=== PATIENT | male | born 1965 | race Two or more races ===

== ENCOUNTER 2017-12-25 11:59 | Inpatient (IN) | payer OTHER ==
[2017-12-25 15:28] VITALS: BMI 26.1
--- NOTE | 2017-12-25 17:55 | HP ---
CIWA Score - CIWA Score Nausea/Vomitin Muscle Tremors: 2 Anxiety: 3 Agitation: 3 Paroxysmal Sweats: 3 Orientation: 1-Uncertain about Date Tacttile Disturbances: 0-None Auditory Disturbances: 2-Mild Harshness/Frighten Visual Disturbances: 2-Mild Sensitivity Headache: 3-Moderate CIWA-Ar Total Score: 22 Admission ROS BHS - HPI Chief Complaint: I am here for detox from alcohol, I don't feel well " Allergies/Adverse Reactions: Allergies Allergy/AdvReac Type Severity Reaction Status Date / Time No Known Allergies Allergy Verified 12/25/17 16:54 History of Present Illness: 52 yo male with hx of alcohol, cocaine, nicotine dependence is here for detox. Reports hx of insomnia , denies any other medical or psychiatric history. Currently in a [facility] at [facility] [place] Fax: , on 80 mg of Methadone, last medicated 12/25/17. Reports smoking cigarettes since ages of 15 yo, currently smokes 5 cigarettes per day. Denies suicidal / homicidal ideation or suicide attempts. Exam Limitations: No Limitations - Ebola screening Have you traveled outside of the country in the last 21 days: No (N) Have you had contact with anyone from an Ebola affected area: No Have you been sick,other than usual withdrawal symptoms: No Do you have a fever: No - Review of Systems Constitutional: Chills, Loss of Appetite, Changes in sleep EENT: reports: No Symptoms Reported Respiratory: reports: No Symptoms reported Cardiac: reports: No Symptoms Reported GI: reports: No Symptoms Reported : reports: No Symptoms Reported Musculoskeletal: reports: No Symptoms Reported Integumentary: reports: Other (hyperpigmentation on bilateral both lower extremites) Neuro: reports: Headache Endocrine: reports: No Symptoms Reported Hematology: reports: No Symptoms Reported Psychiatric: reports: Agitated, Depressed, other (AOxPP) Other Systems: Reviewed and Negative Patient History - Patient Medical History Hx Anemia: No Hx Asthma: No Hx Chronic Obstructive Pulmonary Disease (COPD): No Hx Cancer: No Hx Cardiac Disorders: No Hx Congestive Heart Failure: No Hx Hypertension: No Hx Hypercholesterolemia: No Hx Pacemaker: No HX Cerebrovascular Accident: No Hx Seizures: No Hx Dementia: No Hx Diabetes: No Hx Gastrointestinal Disorders: No Hx Liver Disease: No Hx Genitourinary Disorders: No Hx Sexually Transmitted Disorders: No Hx Renal Disease (ESRD): No Hx Thyroid Disease: No Hx Human Immunodeficiency Virus (HIV): No (neagtive last tested Sep 2017) Hx Hepatitis C: No Hx Depression: No Hx Suicide Attempt: No Hx Bipolar Disorder: No Hx Schizophrenia: No - Patient Surgical History Past Surgical History: No Hx Neurologic Surgery: No Hx Cataract Extraction: No Hx Cardiac Surgery: No Hx Lung Surgery: No Hx Breast Surgery: No Hx Breast Biopsy: No Hx Abdominal Surgery: Yes (Abdominal Hernia ) Hx Appendectomy: No Hx Cholecystectomy: No Hx Genitourinary Surgery: No Hx Section: No Hx Orthopedic Surgery: No Hx Hysterectomy: No Anesthesia Reaction: No - PPD History Previous Implant?: No PPD to be Administered?: Yes - Reproductive History Patient is a Female of Child Bearing Age (11 -55 yrs old): No - Smoking Cessation Smoking history: Current every day smoker Have you smoked in the past 12 months: Yes Aproximately how many cigarettes per day: 10 Hx Chewing Tobacco Use: No Initiated information on smoking cessation: Yes 'Breaking Loose' booklet given: 12/25/17 - Substance & Tx. History Hx Alcohol Use: Yes Hx Substance Use: Yes Substance Use Type: Alcohol, Cocaine, Heroin Hx Substance Use Treatment: Yes ([facility] 07/2017) - Substances Abused Alcohol Route: Oral Frequency: Daily Amount used: 24 OZ ALCOHOL Age of first use: 18 Date of Last Use: 12/25/17 Cocaine Route: Smoking Frequency: Daily Amount used: 5GRAM Age of first use: 18 Date of Last Use: 12/18/17 Family Disease History - Family Disease History Family Disease History: Other: Mother (alive and well ) Admission Physical Exam [facility] - Vital Signs Vital Signs: Vital Signs - 24 hr 12/25/17 15:16 Temperature 97 F L Pulse Rate 64 Respiratory 20 Rate Blood Pressure 124/88 - Physical General Appearance: Yes: Disheveled, Irritable, Anxious HEENTM: Yes: EOMI, Hearing grossly Normal, Normal ENT Inspection, Normocephalic , Normal Voice, LOBO, Pharynx Normal, Tm's normal, Other (dry mucous membranes) Respiratory: Yes: Chest Non-Tender, Lungs Clear, Normal Breath Sounds, No Respiratory Distress, No Accessory Muscle Use Neck: Yes: No masses,lesions,Nodules, Trachea in good position Breast: Yes: Breast Exam Deferred Cardiology: Yes: Regular Rhythm, Regular Rate, S1, S2 Abdominal: Yes: Normal Bowel Sounds, Non Tender, Flat, Soft Genitourinary: Yes: Within Normal Limits Back: Yes: Normal Inspection Musculoskeletal: Yes: full range of Motion, Gait Steady Extremities: Yes: Normal Range of Motion, Non-Tender, Swelling (bilateral lower extremities non-pitting edema +2 with hyperpigmentation) Neurological: Yes: ham doctor II-XII NML intact, Fully Oriented, Alert, Motor Strength 5/5, Depressed Affect Integumentary: Yes: Dry, Warm, Pitting Edema, Other (hyperpigmentation on bilateral lower extremities) - Diagnostic (1) Venous insufficiency (chronic) (peripheral) Current Visit: Yes Status: Chronic (2) Methadone maintenance therapy patient Current Visit: Yes Status: Chronic Comment: Currently on 80 mg of Methadone , pending verification (3) Cocaine dependence Current Visit: Yes Status: Chronic (4) Alcohol dependence with uncomplicated withdrawal Current Visit: Yes Status: Acute (5) Dehydration Current Visit: Yes Status: Acute Cleared for Admission [facility] - Detox or Rehab [facility] Level of Care: Medically Managed Detox Regimen/Protocol: Librium [facility] Breath Alcohol Content Breath Alcohol Content: 0.199 Urine Drug Screen - Results Drug Screen Negative: No Urine Drug Screen Results: KAROLINA-Cocaine, MTD-Methadone
[2017-12-25] MEDS ORDERED: P-EPHED 60MG/TRIPROLIDI 2.5MG TABLET PO PRN (18:14)
[2017-12-25] MEDS ORDERED: hydrOXYzine PAMOATE 50 MG CAPSULE (FP) PO PRN (18:14)
[2017-12-25] MEDS ORDERED: guaiFENesin/D-METHORPHAN HB 10 ML UNIT-DOSE CUPS PO PRN (18:14)
[2017-12-25] MEDS ORDERED: MAG HYDROX/AL HYDROX/SIMETH 30 ML UNIT-DOSE CUP PO PRN (18:14)
[2017-12-25] MEDS ORDERED: MAGNESIUM HYDROX 2400MG/30ML ORAL SUSPENSION 30 ML CUP PO PRN (18:14)
[2017-12-25] MEDS ORDERED: ACETAMINOPHEN 325 MG TABLET (FP) PO PRN (18:14)
[2017-12-25] MEDS ORDERED: MENTHOL/PHENOL 1 EACH UD MM PRN (18:14)
[2017-12-25] MEDS ORDERED: NICOTINE POLACRILEX 2 MG GUM BC PRN (18:14)
[2017-12-25] MEDS ORDERED: chlordiazePOXIDE HCL 25 MG CAPSULE PO PRN (18:14)
[2017-12-25] MEDS ORDERED: LOPERAMIDE HCL 2 MG CAPSULE PO PRN (18:14)
[2017-12-25] MEDS ORDERED: MAGNESIUM CITRATE 300 ML BOTTLE PO PRN (18:14)
[2017-12-25] MEDS ORDERED: IBUPROFEN 400 MG TABLET (FP) PO PRN (18:14)
[2017-12-25] MEDS ORDERED: chlordiazePOXIDE HCL 25 MG CAPSULE PO ONE (19:00)
[2017-12-25] MEDS: chlordiazePOXIDE HCL 25 MG CAPSULE PO SCH (22:10)
[2017-12-25] MEDS: THIAMINE HCL 100 MG TABLET (FP) PO SCH (22:10)
[2017-12-25 23:32] LABS: URINE APPEARANCE CLEAR; URINE BILIRUBIN NEGATIVE (NEGATIVE); URINE BLOOD NEGATIVE (NEGATIVE); URINE COLOR STRAW; URINE GLUCOSE (UA) NEGATIVE (NEGATIVE); URINE KETONE NEGATIVE (NEGATIVE); URINE LEUK ESTERASE NEGATIVE (NEGATIVE); URINE NITRITE NEGATIVE (NEGATIVE); URINE PROTEIN NEGATIVE (NEGATIVE); URINE UROBILINOGEN NEGATIVE mg/dL (0.2-1.0)
[2017-12-26] MEDS: chlordiazePOXIDE HCL 25 MG CAPSULE PO SCH ×4 (06:09→21:59)
[2017-12-26] MEDS ORDERED: METHADONE HCL 40 MG DISPERSABLE TABLET PO ONE (08:58)
[2017-12-26 10:04] LABS: HEMOGLOBIN 12.6 GM/dL (11.7-16.9); MCH 27.6 pg (25.7-33.7); MCHC 31.5 g/dl (32.0-35.9); MEAN CELL VOLUME 87.8 fl (80-96); MEAN PLT VOLUME 8.3 fl (7.5-11.1); PLATELET COUNT 239 K/MM3 (134-434); RBC 4.56 M/mm3 (4.00-5.60); RDW 15.1 % (11.9-15.9); WHITE BLOOD COUNT 6.3 K/mm3 (4.0-10.0)
[2017-12-26 10:35] LABS: CHLORIDE 107 mmol/L (98-107); POTASSIUM 4.4 mmol/L (3.5-5.1); SODIUM 142 mmol/L (136-145)
[2017-12-26 10:47] LABS: ALBUMIN 3.3 g/dl (3.4-5.0); ALK PHOS 171 U/L (45-117); ANION GAP 6 (8-16); BILIRUBIN,TOTAL 0.7 mg/dL (0.2-1.0); BLOOD UREA NITROGEN 11 mg/dL (7-18); CALCIUM 8.5 mg/dL (8.5-10.1); CO2 29 mmol/L (21-32); CREATININE 0.9 mg/dL (0.7-1.3); GLUCOSE,RANDOM 75 mg/dL (74-106); SGOT/AST 43 U/L (15-37); SGPT/ALT 50 U/L (12-78); TOT PROT 6.4 g/dl (6.4-8.2)
[2017-12-26] MEDS: PRENATAL VITAMINS W/ FOLIC ACID TABLET (FP) PO SCH (10:47)
[2017-12-26] MEDS: NICOTINE 7 MG/24 HOURS TOPICAL PATCH TD SCH (10:49)
--- NOTE | 2017-12-26 11:01 | EKG ---
Test Reason : Blood Pressure : / mmHG Vent. Rate : 061 BPM Atrial Rate : 061 BPM P-R Int : 170 ms QRS Dur : 092 ms QT Int : 388 ms P-R-T Axes : 043 -02 077 degrees QTc Int : 390 ms NORMAL SINUS RHYTHM NONSPECIFIC T WAVE ABNORMALITY ABNORMAL ECG NO PREVIOUS ECGS AVAILABLE Confirmed by HOWIE SANTANA MD ([id number]) on 12/26/2017 11:01:18 AM Referred By: Confirmed By:HOWIE SANTANA MD
--- NOTE | 2017-12-26 11:31 | PN ---
[facility] CIWA - CIWA Score Nausea/Vomitin-No Nausea/No Vomiting Muscle Tremors: 4-Moderate,w/Arms Extend Anxiety: 4-Mod. Anxious/Guarded Agitation: 4-Moderately Restless Paroxysmal Sweats: 1-Minimal Palms Moist Orientation: 0-Oriented Tacttile Disturbances: 3-Moderate Itch/Numb/Burn Auditory Disturbances: 0-None Visual Disturbances: 0-None Headache: 0-None Present CIWA-Ar Total Score: 16 S Progress Note (SOAP) Subjective: BACK ACHE, STOMACH CRAMPS, NO BM. Objective: 12/26/17 11:30 Vital Signs Temperature 96.7 F L 12/26/17 09:42 Pulse Rate 80 12/26/17 09:42 Respiratory Rate 18 12/26/17 09:42 Blood Pressure 121/80 12/26/17 09:42 O2 Sat by Pulse Oximetry (%) Laboratory Last Values WBC 6.3 K/mm3 (4.0-10.0) 12/26/17 07:30 RBC 4.56 M/mm3 (4.00-5.60) 12/26/17 07:30 Hgb 12.6 GM/dL (11.7-16.9) 12/26/17 07:30 Hct 40.0 % (35.4-49) 12/26/17 07:30 MCV 87.8 fl (80-96) 12/26/17 07:30 MCH 27.6 pg (25.7-33.7) 12/26/17 07:30 MCHC 31.5 g/dl (32.0-35.9) L 12/26/17 07:30 RDW 15.1 % (11.9-15.9) 12/26/17 07:30 Plt Count 239 K/MM3 (134-434) 12/26/17 07:30 MPV 8.3 fl (7.5-11.1) 12/26/17 07:30 Sodium 142 mmol/L (136-145) 12/26/17 07:30 Potassium 4.4 mmol/L (3.5-5.1) 12/26/17 07:30 Chloride 107 mmol/L (98-107) 12/26/17 07:30 Carbon Dioxide 29 mmol/L (21-32) 12/26/17 07:30 Anion Gap 6 (8-16) L 12/26/17 07:30 BUN 11 mg/dL (7-18) 12/26/17 07:30 Creatinine 0.9 mg/dL (0.7-1.3) 12/26/17 07:30 Creat Clearance w eGFR > 60 (>60) 12/26/17 07:30 Random Glucose 75 mg/dL (74-106) 12/26/17 07:30 Calcium 8.5 mg/dL (8.5-10.1) 12/26/17 07:30 Total Bilirubin 0.7 mg/dL (0.2-1.0) 12/26/17 07:30 AST 43 U/L (15-37) H 12/26/17 07:30 ALT 50 U/L (12-78) 12/26/17 07:30 Alkaline Phosphatase 171 U/L (45-117) H 12/26/17 07:30 Total Protein 6.4 g/dl (6.4-8.2) 12/26/17 07:30 Albumin 3.3 g/dl (3.4-5.0) L 12/26/17 07:30 Urine Color Straw 12/25/17 20:21 Urine Appearance Clear 12/25/17 20:21 Urine pH 6.0 (5.0-8.0) 12/25/17 20:21 Ur Specific [place] 1.003 (1.001-1.035) 12/25/17 20:21 Urine Protein Negative (NEGATIVE) 12/25/17 20:21 Urine Glucose (UA) Negative (NEGATIVE) 12/25/17 20:21 Urine Ketones Negative (NEGATIVE) 12/25/17 20:21 Urine Blood Negative (NEGATIVE) 12/25/17 20:21 Urine Nitrite Negative (NEGATIVE) 12/25/17 20:21 Urine Bilirubin Negative (NEGATIVE) 12/25/17 20:21 Urine Urobilinogen Negative mg/dL (0.2-1.0) 12/25/17 20:21 Ur Leukocyte Esterase Negative (NEGATIVE) 12/25/17 20:21 Assessment: 12/26/17 11:30 WITHDRAWAL SX Plan: CONTINUE DETOX MOM PRN, CITRATE OF MG IF NOT EFFECTIVE
--- NOTE | 2017-12-26 15:02 | CONSULT ---
[facility] Psychiatric Consult - Data Date of interview: 12/26/17 Admission source: [facility] Identifying data: Readmission to [facility] for this 52 y/o male seeking detox treatment on for alcohol,cocaine and opioid dependence.Patient is single,a father of two,domiciled,unemployed and supported on Public Assistance. Substance Abuse History: Confirmed by patient in this interview.See details in current [facility] report.Smoking history: Current every day smoker. Have you smoked in the past 12 months: Yes. Aproximately how many cigarettes per day: 10. Hx Chewing Tobacco Use: No. Initiated information on smoking cessation: Yes. ' Breaking Loose' booklet given: 12/25/17. - Substance & Tx. History. Hx Alcohol Use: Yes. Hx Substance Use: Yes. Substance Use Type: Alcohol, Cocaine , Heroin. Hx Substance Use Treatment: Yes ([facility] 07/2017). - Substances Abused. Alcohol. Route: Oral. Frequency: Daily. Amount used: 24 OZ ALCOHOL. Age of first use: 18. Date of Last Use: 12/25/17. Cocaine. Route: Smoking. Frequency: Daily. Amount used: 5GRAM. Age of first use: 18. Date of Last Use : 12/18/17 Medical History: Peripheral venous insufficiency (both lower extremities) and abdominal hernia. Psychiatric History: Patient denies. Physical/Sexual Abuse/Trauma History: Patient denies history of psychiatric hospitalizations.Mr Sequeira is currently on methadone maintenace (80 mg/day) at the [facility] [place] [facility].Patient denies history of suicide attempts. Additional Comment: Urine Drug Screen Results: KAROLINA-Cocaine, MTD-Methadone.Noted. Mental Status Exam - Mental Status Exam Alert and Oriented to: Time, Place, Person Cognitive Function: Good Patient Appearance: Well Groomed Mood: Hopeful, Euthymic Affect: Appropriate, Normal Range Patient Behavior: Fatigued, Appropriate, Cooperative Speech Pattern: Clear Voice Loudness: Normal Thought Process: Intact, Goal Oriented Thought Disorder: Not Present Hallucinations: Denies Suicidal Ideation: Denies Homicidal Ideation: Denies Insight/Judgement: Poor Sleep: Poorly, Difficulty falling asleep Appetite: Good Muscle strength/Tone: Normal Gait/Station: Normal Psychiatric Findings - Problem List ([place] 1, 2,3) (1) Opioid dependence on agonist therapy Current Visit: Yes Status: Acute (2) Alcohol dependence with uncomplicated withdrawal Current Visit: Yes Status: Acute (3) Cocaine dependence Current Visit: Yes Status: Acute (4) Insomnia Current Visit: Yes Status: Acute - Initial Treatment Plan Initial Treatment Plan: Psychoeducation.Sleep hygiene.Detoxification in effect.Choice of hypnotic medications is presented to patient.Declines.Encouraged to attend / participate in groups,community meetings and recreational activities during this hospital course.Patient agrees.Observation.
[2017-12-26] MEDS: THIAMINE HCL 100 MG TABLET (FP) PO SCH (21:59)
[2017-12-27] MEDS: METHADONE HCL 40 MG DISPERSABLE TABLET PO SCH (05:47)
[2017-12-27] MEDS: chlordiazePOXIDE HCL 25 MG CAPSULE PO SCH ×2 (05:47→10:36)
[2017-12-27] MEDS: NICOTINE 7 MG/24 HOURS TOPICAL PATCH TD SCH (10:36)
[2017-12-27] MEDS: PRENATAL VITAMINS W/ FOLIC ACID TABLET (FP) PO SCH (10:36)
[2017-12-27] MEDS: TETRAHYDROZOLINE HCL 1 DROP DROPS OD PRN (10:39)
--- NOTE | 2017-12-27 12:03 | PN ---
[facility] CIWA - CIWA Score Nausea/Vomitin-No Nausea/No Vomiting Muscle Tremors: 4-Moderate,w/Arms Extend Anxiety: 4-Mod. Anxious/Guarded Agitation: 4-Moderately Restless Paroxysmal Sweats: 1-Minimal Palms Moist Orientation: 0-Oriented Tacttile Disturbances: 3-Moderate Itch/Numb/Burn Auditory Disturbances: 0-None Visual Disturbances: 0-None Headache: 0-None Present CIWA-Ar Total Score: 16 S Progress Note (SOAP) Subjective: PT C/O "I'M NOT FEELING WELL'-ANXIETY,SWEATS,ACHES,NAUSEA. HOWEVER PT APPEARED SLIGHTLY DROWSY.OOB AMBULATING WITH STEADY GAIT. Objective: 12/27/17 12:02 Vital Signs Temperature 97.5 F L 12/27/17 09:42 Pulse Rate 59 L 12/27/17 09:42 Respiratory Rate 18 12/27/17 09:42 Blood Pressure 107/66 12/27/17 09:42 O2 Sat by Pulse Oximetry (%) Laboratory Last Values WBC 6.3 K/mm3 (4.0-10.0) 12/26/17 07:30 RBC 4.56 M/mm3 (4.00-5.60) 12/26/17 07:30 Hgb 12.6 GM/dL (11.7-16.9) 12/26/17 07:30 Hct 40.0 % (35.4-49) 12/26/17 07:30 MCV 87.8 fl (80-96) 12/26/17 07:30 MCH 27.6 pg (25.7-33.7) 12/26/17 07:30 MCHC 31.5 g/dl (32.0-35.9) L 12/26/17 07:30 RDW 15.1 % (11.9-15.9) 12/26/17 07:30 Plt Count 239 K/MM3 (134-434) 12/26/17 07:30 MPV 8.3 fl (7.5-11.1) 12/26/17 07:30 Sodium 142 mmol/L (136-145) 12/26/17 07:30 Potassium 4.4 mmol/L (3.5-5.1) 12/26/17 07:30 Chloride 107 mmol/L (98-107) 12/26/17 07:30 Carbon Dioxide 29 mmol/L (21-32) 12/26/17 07:30 Anion Gap 6 (8-16) L 12/26/17 07:30 BUN 11 mg/dL (7-18) 12/26/17 07:30 Creatinine 0.9 mg/dL (0.7-1.3) 12/26/17 07:30 Creat Clearance w eGFR > 60 (>60) 12/26/17 07:30 Random Glucose 75 mg/dL (74-106) 12/26/17 07:30 Calcium 8.5 mg/dL (8.5-10.1) 12/26/17 07:30 Total Bilirubin 0.7 mg/dL (0.2-1.0) 12/26/17 07:30 AST 43 U/L (15-37) H 12/26/17 07:30 ALT 50 U/L (12-78) 12/26/17 07:30 Alkaline Phosphatase 171 U/L (45-117) H 12/26/17 07:30 Total Protein 6.4 g/dl (6.4-8.2) 12/26/17 07:30 Albumin 3.3 g/dl (3.4-5.0) L 12/26/17 07:30 Urine Color Straw 12/25/17 20:21 Urine Appearance Clear 12/25/17 20:21 Urine pH 6.0 (5.0-8.0) 12/25/17 20:21 Ur Specific [place] 1.003 (1.001-1.035) 12/25/17 20:21 Urine Protein Negative (NEGATIVE) 12/25/17 20:21 Urine Glucose (UA) Negative (NEGATIVE) 12/25/17 20:21 Urine Ketones Negative (NEGATIVE) 12/25/17 20:21 Urine Blood Negative (NEGATIVE) 12/25/17 20:21 Urine Nitrite Negative (NEGATIVE) 12/25/17 20:21 Urine Bilirubin Negative (NEGATIVE) 12/25/17 20:21 Urine Urobilinogen Negative mg/dL (0.2-1.0) 12/25/17 20:21 Ur Leukocyte Esterase Negative (NEGATIVE) 12/25/17 20:21 RPR Titer Nonreactive (NONREACTIVE) 12/26/17 07:30 Hepatitis C Antibody <0.1 s/co ratio (0.0-0.9) 12/25/17 07:30 Assessment: 12/27/17 12:02 WITHDRAWAL SX Plan: CONTINUED DETOX
[2017-12-27] MEDS: chlordiazePOXIDE 5 MG CAPSULE PO SCH ×2 (17:34→22:07)
[2017-12-27] MEDS: THIAMINE HCL 100 MG TABLET (FP) PO SCH (22:07)
[2017-12-27] MEDS ORDERED: chlordiazePOXIDE 5 MG CAPSULE PO SCH (23:00)
[2017-12-28] MEDS: TETRAHYDROZOLINE HCL 1 DROP DROPS OD PRN (04:57)
[2017-12-28] MEDS ORDERED: chlordiazePOXIDE HCL 10 MG CAPSULE PO SCH ×2 (05:00→23:00)
[2017-12-28] MEDS: METHADONE HCL 40 MG DISPERSABLE TABLET PO SCH (05:20)
[2017-12-28 06:27] VITALS: BP 116/76; PULSE 64; TEMP 97.2
--- NOTE | 2017-12-28 08:24 | DS ---
[facility] Detox Discharge Summary Admission Date: 12/25/17 Discharge Date: 12/28/17 - History Present History: Alcohol Dependence, Cocaine Dependence, MMTP Additional Comments: DETOX COMPLETED. ALERT O X 3. NAD. Pertinent Past History: SEE DX BELOW - Physical Exam Results Vital Signs: Vital Signs Temperature 97.2 F L 12/28/17 06:26 Pulse Rate 64 12/28/17 06:26 Respiratory Rate 18 12/28/17 06:26 Blood Pressure 116/76 12/28/17 06:26 O2 Sat by Pulse Oximetry (%) Pertinent Admission Physical Exam Findings: WITHDRAWAL SX Laboratory Last Values WBC 6.3 K/mm3 (4.0-10.0) 12/26/17 07:30 RBC 4.56 M/mm3 (4.00-5.60) 12/26/17 07:30 Hgb 12.6 GM/dL (11.7-16.9) 12/26/17 07:30 Hct 40.0 % (35.4-49) 12/26/17 07:30 MCV 87.8 fl (80-96) 12/26/17 07:30 MCH 27.6 pg (25.7-33.7) 12/26/17 07:30 MCHC 31.5 g/dl (32.0-35.9) L 12/26/17 07:30 RDW 15.1 % (11.9-15.9) 12/26/17 07:30 Plt Count 239 K/MM3 (134-434) 12/26/17 07:30 MPV 8.3 fl (7.5-11.1) 12/26/17 07:30 Sodium 142 mmol/L (136-145) 12/26/17 07:30 Potassium 4.4 mmol/L (3.5-5.1) 12/26/17 07:30 Chloride 107 mmol/L (98-107) 12/26/17 07:30 Carbon Dioxide 29 mmol/L (21-32) 12/26/17 07:30 Anion Gap 6 (8-16) L 12/26/17 07:30 BUN 11 mg/dL (7-18) 12/26/17 07:30 Creatinine 0.9 mg/dL (0.7-1.3) 12/26/17 07:30 Creat Clearance w eGFR > 60 (>60) 12/26/17 07:30 Random Glucose 75 mg/dL (74-106) 12/26/17 07:30 Calcium 8.5 mg/dL (8.5-10.1) 12/26/17 07:30 Total Bilirubin 0.7 mg/dL (0.2-1.0) 12/26/17 07:30 AST 43 U/L (15-37) H 12/26/17 07:30 ALT 50 U/L (12-78) 12/26/17 07:30 Alkaline Phosphatase 171 U/L (45-117) H 12/26/17 07:30 Total Protein 6.4 g/dl (6.4-8.2) 12/26/17 07:30 Albumin 3.3 g/dl (3.4-5.0) L 12/26/17 07:30 Urine Color Straw 12/25/17 20:21 Urine Appearance Clear 12/25/17 20:21 Urine pH 6.0 (5.0-8.0) 12/25/17 20:21 Ur Specific [place] 1.003 (1.001-1.035) 12/25/17 20:21 Urine Protein Negative (NEGATIVE) 12/25/17 20:21 Urine Glucose (UA) Negative (NEGATIVE) 12/25/17 20:21 Urine Ketones Negative (NEGATIVE) 12/25/17 20:21 Urine Blood Negative (NEGATIVE) 12/25/17 20:21 Urine Nitrite Negative (NEGATIVE) 12/25/17 20:21 Urine Bilirubin Negative (NEGATIVE) 12/25/17 20:21 Urine Urobilinogen Negative mg/dL (0.2-1.0) 12/25/17 20:21 Ur Leukocyte Esterase Negative (NEGATIVE) 12/25/17 20:21 RPR Titer Nonreactive (NONREACTIVE) 12/26/17 07:30 Hepatitis C Antibody <0.1 s/co ratio (0.0-0.9) 12/25/17 07:30 - Treatment Hospital Course: Detox Protocol Followed, Detoxed Safely, Responded well, Discharged Condition Good Patient has Accepted a Rehab Referral to: [facility] - Medication Discharge Medications: Ambulatory Orders NK [No Known Home Medication] 12/25/17 - Diagnosis (1) Alcohol dependence with uncomplicated withdrawal Status: Acute (2) Dehydration Status: Acute (3) Cocaine dependence Status: Acute (4) Methadone maintenance therapy patient Status: Chronic (5) Venous insufficiency (chronic) (peripheral) Status: Chronic (6) Constipation Status: Chronic Qualifiers: Constipation type: slow transit constipation Qualified Code(s): K59.01 - Slow transit constipation - AMA Did Patient Leave Against Medical Advice: No
== END 2017-12-28 09:32 | disposition home or self-care (01) | DRG 773 ==
LOC: YASAS 11:59 → Y3N 18:10
PROVIDERS: ADMIT Internal Medicine; ATTEND Internal Medicine
PROC: HZ2ZZZZ Detoxification Services for Substance Abuse Treatment (ICD-10-PCS; principal; 2017-12-25)
DX: F10.230 Alcohol dependence with withdrawal, uncomplicated (principal); F11.20 Opioid dependence, uncomplicated; F14.20 Cocaine dependence, uncomplicated; F17.210 Nicotine dependence, cigarettes, uncomplicated; E86.0 Dehydration; I87.2 Venous insufficiency (chronic) (peripheral); K59.01 Slow transit constipation; G47.00 Insomnia, unspecified
CPT/HCPCS: 36415; 80053; 81003; 85027; 86593; 86803; 93005; 93010